=== PATIENT | male | born 1945 | race Caucasian/White ===

== ENCOUNTER 2016-08-02 09:25 | Observation (INO) | payer MEDICARE ==
[2016-08-02] VITALS (9 sets, daily range): BP systolic 133–172; BP diastolic 71–88; PULSE 60–70; RESP 10–17; O2SAT 94–97
[~2016-08-02] VITALS: Ht 190.5 cm; Wt 103.8 kg
[2016-08-02 09:52] LABS: BASOPHILS % (AUTO) 0.4 % (0-3); EOSINOPHILS % (AUTO) 0.7 % (0-5); MONOCYTES % (AUTO) 9.7 % (4-12); Mean Corpuscular Volume 92.3 fL (81-100); Platelet Count 215 bil/L (150-400)
--- NOTE | 2016-08-02 10:03 | ED.REPORT ---
HPI-Chest Pain 40 and Over Date of Service Aug 02, 2016 ED Provider: Getachew Miranda MD The patient is a 71 year old male with history of high cholesterol, who was brought to the emergency department by EMS for "sharp" chest pain that woke him from sleep at 0300 last night. The patient had 4 episodes of chest discomfort throughout the morning. His pain radiated into his left shoulder and he also noticed left hand numbness and shortness of breath. He called his regular doctor who recommended calling EMS. By the time medics arrived his pain was resolved and has not returned since. He denies fever, chills, cough, nausea, vomiting or diaphoresis. He denies history of coronary artery disease, COPD or asthma. He had a stress test a few years ago but does not remember the findings. Nursing Notes Stated Complaint: CHEST PAIN Chief Complaint: Chest Pain Nursing Notes Reviewed: Yes Allergies: Coded Allergies: No Known Allergies (Verified Allergy, Unknown, 08/02/16) General Time Seen by MD: 09:27 Chief Complaint Chest pain Hx Obtained From: Patient, EMS Arrived By: Ambulance Sudden in Onset?: Yes Onset Occurred: 5 - 8 hours ago Symptom Duration: Intermittent Location: : Chest left Quality: Painful, Sharp Radiation: : Shoulder left Severity: Current: No pain currently Severity: Maximum: Severe Recent Healthcare: No recent doctor visit, No recent hospitalization Similar Sx Previous: No Past Medical History Past Medical History Glaucoma High cholesterol Past Surgical History Prostate repair with modified TURP Cholecystectomy Family History Noncontributory Smoking History Unknown if Ever Smoker Social History Lives on [address]. He exercises at least 3 times per week. Ambulatory Status Independent Review of Systems Constitutional: Denies: Chills, Fever Respiratory: Reports: Shortness of breath, Denies: Non-productive cough Cardiovascular: Reports: Chest pain GI: Denies: Nausea, Vomiting Musculoskeletal: Reports: Extremity pain (left arm), Joint pain (left shoulder) Skin: Denies Diaphoresis Neurologic: Reports: Numbness (left hand) Complete sys rev & neg: except as marked. Physical Exam Initial Vital Signs Vital Signs (First) Date Time Temp Pulse Resp B/P Pulse Ox O2 Delivery O2 Flow Rate FiO2 08/02/16 09:25 37.1 65 10 172/71 95 Room Air 08/02/16 10:24 2 Initial VS: Reviewed Head / Eyes: Atraumatic, Normocephalic, PERRL ENT: Mucous membranes moist, Conjunctiva normal, No scleral icterus Neck: Supple, Non-tender, Full range of motion Extremities: Vascular intact, Neuro intact, No swelling, No tenderness Skin: Warm, Dry, No cyanosis Neurologic: Alert, Oriented, Nonfocal Psychiatric: Mood/affect normal, Behavior normal, Normal thought content General/Constitutional: Awake, Alert, No acute distress, Well appearing Respiratory / Chest: Atraumatic, Breath sounds NL, Breath sounds = bilat, No respiratory distress, No rales, No rhonchi, No wheezing, No stridor, No chest tenderness Cardiovascular: Heart rate NL, Regular rhythm, Heart sounds NL, No gallop, No murmurs, No rubs, Peripheral circulation NL, Pulses = bilaterally, No gross BP differential Abdomen: Atraumatic, Soft, Non-tender, McBurney's non-tender, No guarding, No rebound, BS normoactive, No distention, No hernia, No palpable mass Lower Extremity / Pelvis / MS: Neurologic intact, Vascular intact, No edema No calf swelling or tenderness Interpretation & Diagnostics Lab Results Interpretation Result Diagram: 08/02/16 0940 08/02/16 0940 Test 08/02/16 09:40 08/02/16 09:56 White Blood Count 6.7th/mm3 (3.8-10.1) Red Blood Count 4.93mil/mm3 (4.40-5.80) Hemoglobin 15.3g/dL (13.8-17.2) Hematocrit 45.5% (41.0-50.0) Mean Corpuscular Volume 92.3fL (81-100) Mean Corpuscular Hemoglobin 31.0pg (27.0-35.0) Mean Corpuscular Hemoglobin Concent 33.6% (32.0-37.0) Red Cell Distribution Width 13.6% (12.3-15.4) Platelet Count 215bil/L (150-400) Neutrophils (%) (Auto) 66.0% (40-74) Lymphocytes (%) (Auto) 23.1% (14-46) Monocytes (%) (Auto) 9.7% (4-12) Eosinophils (%) (Auto) 0.7% (0-5) Basophils (%) (Auto) 0.4% (0-3) Sodium Level 137mEq/L (134-144) Potassium Level 4.3mEq/L (3.5-5.2) Chloride Level 100mEq/L (97-108) Carbon Dioxide Level 22mmol/L (18-29) Blood Urea Nitrogen 13mg/dL (8-27) Creatinine 0.86mg/dL (0.76-1.27) Estimat Glomerular Filtration Rate 93mL/min (>59) Glucose Level 107mg/dL (60-99) Calcium Level 8.9mg/dL (8.5-10.1) Total Bilirubin 1.1mg/dL (0.0-1.2) Aspartate Amino Transf (AST/SGOT) 32U/L (0-50) Alanine Aminotransferase (ALT/SGPT) 25U/L (0-44) Alkaline Phosphatase 69U/L (25-160) Troponin T 0.010ug/L (0.0-0.011) Total Protein 7.0g/dL (6.4-8.4) Albumin 4.2g/dL (3.4-5.0) Urine Color Straw (YELLOW) Urine Appearance Hazy (CLEAR,HAZY) Urine pH 6.5 (5.0-8.0) Urine Specific [place] 1.008 (1.003-1.035) Urine Protein Negativemg/dL (NEG,TRACE) Urine Glucose (UA) Negativemg/dL (NEGATIVE) Urine Ketones Negativemg/dL (NEGATIVE) Urine Occult Blood Moderate (NEGATIVE) Urine Nitrite Negative (NEGATIVE) Urine Bilirubin Negative (NEGATIVE) Urine Urobilinogen Normalmg/dL (NORMAL) Urine Leukocyte Esterase Small (NEGATIVE) Urine RBC 0-2/hpf (0-2) Urine WBC 11-50/hpf (0-5) Urine Epithelial Cells Occasional/hpf (NONE-MOD) Urine Crystals None seen (NONE SEEN) Urine Bacteria Few/hpf (NONE-FEW) Urine Hyaline Casts None/lpf (NONE) Urine Granular Casts None seen (NONE SEEN) Urine Waxy Casts None seen (NONE SEEN) Urine Red Blood Cell Casts None seen (NONE SEEN) Urine White Blood Cell Casts None seen (NONE SEEN) Urine Mucus None seen (None Seen) Urine Trichomonas None seen (NONE SEEN) Urine Yeast None (NONE SEEN) Urinalysis Comment None Urine Culture Reflexed Indicated ECG Interpretation ECG Interpretation: Sinus rhythm with a rate of 68 bpm Normal axis Normal intervals No ST segment changes No T wave abnormalities No prior for comparison Time: 10:14 Interpreted by: ED physician X-Ray Chest Interpretation Chest Xray Interpretation: IMPRESSION: No acute cardiopulmonary disease. Dictated by: Zeus Smart M.D. on 08/02/2016 at 11:36 View: Portable, 1 view Interpretation / Wet Read by: Interpret - Radiologist Re-Eval/Medical Decision Med Decision/Clinical Course In summary, the patient is a 71-year-old male with no known past cardiac history who presents to the emergency department with acute onset of left sided chest pain that radiated to his shoulder and jaw and arm. He has received aspirin prior to arrival and here in the emergency department he is chest pain- free without any ongoing symptoms. CXR: Obtained, reviewed and interpreted by myself shows no evidence of acute infiltrates, effusions or pneumothorax. Cardiac and mediastinal silhouette normal. No bony or soft tissue abnormalities. EKG was obtained and interpreted by myself as documented above. LABS: CBC unremarkable, CMP unremarkable, troponin negative, UA unconvincing for UTI. Overall presentation not entirely convincing for acute coronary syndrome. Given duration of symptoms and time of onset I would expect to see positive troponin at this point. That being said, the patient [place] [address] and does not have access to cardiac risk stratification. In discussing this with the patient he would like to be admitted. I did make several attempts to contact his primary care physician to discuss possible outpatient management however I was not successful given that it is Wednesday. I considered other causes of the patient's chest pain beyond cardiac etiologies including pulmonary embolism however he is without tachycardia, tachypnea or hypoxia and does not have any major PE risk factors. I do not feel that workup for pulmonary embolism is indicated at this time. There is no evidence of pneumonia or pneumothorax. The patient remained stable, comfortable and in no apparent distress. Patient was discussed with the admitting hospitalist and transferred to the [facility] stable condition. Further management. Source of Hx: Old records, EMS Time of Eval: 10:32 Re-Evaluation/Progress Note: Discussed plan for workup and the possibility of admission. Time of Eval: 12:00 Re-Evaluation/Progress Note: Rechecked the patient. Discussed workup resuls. Recommended admission for stress test. He is okay with this plan. All questions were addressed. Consultation #1: Referral / Consult Name: Shekhar Downing MD Consulted With: Primary care physician Requested Call at: 10:56 Note: I was unable to get ahold of the patient's PCP. Consultation #2: Referral / Consult Name: Gideon Vasquez MD Consulted With: Hospitalist Requested Call at: 12:01 Call Returned at: 12:14 Equal Opportunity Representative: Will see patient, Agrees with eval, Agrees with plan, Accepts admit Counseled Regarding: Diagnosis, Lab results, Need for admission Discharge & Departure Primary Impression: Chest pain Chest pain type: unspecified Qualified Code: R07.9 - Chest pain, unspecified Additional Impression: HLD (hyperlipidemia) Hyperlipidemia type: unspecified Qualified Code: E78.5 - Hyperlipidemia, unspecified Disposition: ADMITTED TO HOSPITAL Discharge Condition All VS Reviewed: Yes Condition: Stable Referrals: Shekhar Downing MD (PCP) Scribe Attestation Portions of this note were transcribed by Ary Strange. I, Dr. Miranda personally performed the history, physical exam and medical decision-making; I reviewed and confirmed the accuracy of the information in the transcribed note. Signed by: Kylie Tesfaye, 08/01/2015 and 1215. copies to: Shekhar Downing MD, Beck O MD Aug 02, 2016 10:03 Ary Strange Aug 02, 2016 10:22
[2016-08-02 10:12] LABS: TROPONIN T 0.01 ug/L (0.0-0.011)
[2016-08-02 10:30] LABS: APPEARANCE,URINE HAZY (CLEAR,HAZY); COLOR,URINE STRAW (YELLOW); OCCULT BLOOD,URINE MODERATE (NEGATIVE); PH,URINE 6.5 (5.0-8.0); UROBILINOGEN,URINE NORMAL (NORMAL)
--- NOTE | 2016-08-02 11:39 | DRSVH ---
PROCEDURE: X-RAY CHEST, TWO VIEWS ([id number]) INDICATIONS: 71 year-old male with chest pain and left arm pain. TECHNIQUE: 2 views of the chest were acquired. COMPARISON: [facility], , CHEST 1 VIEW, 09/13/2015, 8:49. [facility], , CHEST 1 VIEW, 01/06/2015, 12:29. [facility], , CHEST 2 VIEW, 03/08/2013, 11:12. FINDINGS: Surgical changes and devices: Patient is status post cholecystectomy. Lungs and pleura: No pleural effusions or pneumothorax. Lungs are clear. Mediastinum: Mediastinal contours are normal. Heart size is normal. There is aortic atherosclerosi s. Bones and chest wall: No suspicious bony abnormalities. Soft tissues appear unremarkable. IMPRESSION: No acute cardiopulmonary disease. Dictated by: Zeus Smart M.D. on 08/02/2016 at 11:36 Approved by: Zeus Smart M.D. on 08/02/2016 at 11:37
[2016-08-02] MEDS ORDERED: Polyethylene Glycol (PEG) 17 Gm Powder PO PRN (12:20)
[2016-08-02] MEDS ORDERED: Alum-Mag Hydrox-Simeth 30 mL Suspension PO PRN (12:20)
[2016-08-02] MEDS ORDERED: Ondansetron 2 mg/mL 2 mL Inj IVPUSH PRN (12:20)
--- NOTE | 2016-08-02 12:59 | PCM.HPMED ---
Subjective Date of Service Aug 02, 2016 Primary Provider: Admitting Physician: Gideon Vasquez MD Primary Care Physician: Shekhar Downing MD Attending Physician: Gideon Vasquez MD Chief Complaint: chest pain History of Present Illness: 71 year old male with h/o hyperlipidemia presented to ED with c/o chest pain that was started earlier this morning. He reposts multiple episodes of left sided and substernal chest pain each lasted for about few minutes. Pain radiated to left shoulder, 8/10 in severity, no specific aggravating or relieving factor, associated with mild shortness of breath and left hand numbness. He called his regular doctor who recommended calling EMS. By the time medics arrived his pain was resolved and has not returned since. He denies any fever, chills, cough, nausea, vomiting or diaphoresis. He also denies history of coronary artery disease, COPD or asthma. He had a stress test a few years ago but does not remember the findings. On arrival to ED, he was initially mildly hypertensive. Labs were unremarkable. Allergies Coded Allergies: No Known Allergies (Verified Allergy, Unknown, 08/02/16) PMH - Hyperlipidemia - Glaucoma Surgical History - Prostate surgery, TURP - Cholecystectomy Social History Hx Alcohol Use: Yes ("not often now since my medications") Hx Substance Use: No Smoking Status: Unknown if Ever Smoker Living Arrangement: with Family Exam Vital Signs Vital Sign - Last Date Time Temp Pulse Resp B/P Pulse Ox O2 Delivery O2 Flow Rate FiO2 08/02/16 12:10 69 11 150/88 94 Room Air 08/02/16 10:24 2 08/02/16 09:25 37.1 Exam General: AAO x 3, not in distress HEENT: anicteric sclera CVS: Regular rate and rhythm, S1,S2 normal, No murmur Resp: Normal respiratory effort, Breath sounds bilaterally equal, No rhonchi, No rales Abdomen: soft, non distended, BS +nt, No organomegaly Extremities: No cyanosis, No pedal edema Neuro: AAO x3, No focal neurological defects. Psy: Normal affect Lab and Diagnostics Result Diagram: 08/02/1640 08/02/16 0940 X-Rays, CTs and MRIs CXR: No acute cardiopulmonary disease. Assessment & Plan 71 year old male with h/o hyperlipidemia presented to ED with c/o chest pain. Chest pain - rule out ACS - Trop x 1: negative - Labs were unremarkable - Cardiology consulted from ED. To be admitted for [place] stress test - Aspirin, Statins, - SL NTG prn for pain Analgesics / Antiemetics prn as per protocol GI ppx: Pantoprazole DVT ppx: Heparin Code: Full code Status: To be admitted as observation status as likely discharge from the hospital within two days of the admission Pain Evaluation: Adequate Pain Control GI Prophylaxis: Proton Pump Inhibitor VTE Prophylaxis: Sub-Q Heparin (Unfractionated) Resuscitation Status: CPR: Attempt Resuscitation Gideon Vasquez MD Aug 02, 2016 12:46
--- NOTE | 2016-08-02 13:04 | NUR ---
Admit Patient arrived to room 246-1 via stretcher from ED around 1250. Pt A/Ox3, denies pain, denies nausea. IV SL.
[2016-08-02] MEDS ORDERED: DORZ10DR20 BOTH_EYES (15:30)
[2016-08-02] MEDS ORDERED: LATA2.5D6 BOTH_EYES (15:30)
[2016-08-02] MEDS ORDERED: BRIM5DRO9 BOTH_EYES (15:30)
[2016-08-02] MEDS ORDERED: ASPI-973 PO (15:30)
[2016-08-02] MEDS: Heparin 5,000 Unit/mL Inj SUBQ SCH (16:30)
[2016-08-02] MEDS: Timolol-Dorzolamide 10 mL Ophthalmic Solution BOTH_EYES SCH (20:35)
[2016-08-02] MEDS: Brimonidine 0.2% 5 mL Ophthalmic Solution BOTH_EYES SCH (20:35)
[2016-08-03 00:02] VITALS: BP 139/82; PULSE 65; RESP 17; O2SAT 96
[2016-08-03] MEDS: Heparin 5,000 Unit/mL Inj SUBQ SCH ×2 (00:30→08:30)
[2016-08-03 06:09] VITALS: BP 158/94; PULSE 80; RESP 17; O2SAT 94
[2016-08-03 06:25] LABS: BASOPHILS % (AUTO) 0.4 % (0-3); EOSINOPHILS % (AUTO) 2.5 % (0-5); MONOCYTES % (AUTO) 10.9 % (4-12); Mean Corpuscular Hemoglobin 30.8 pg (27.0-35.0); Mean Corpuscular Volume 91.5 fL (81-100); NEUTROPHILS % (AUTO) 57.1 % (40-74); Platelet Count 239 bil/L (150-400)
[2016-08-03] MEDS ORDERED: Pantoprazole 20 mg ER24 Tablet PO SCH (07:30)
[2016-08-03 07:49] VITALS: BP 150/88; PULSE 70; O2SAT 95
[2016-08-03] MEDS: Brimonidine 0.2% 5 mL Ophthalmic Solution BOTH_EYES SCH (07:54)
[2016-08-03] MEDS: Timolol-Dorzolamide 10 mL Ophthalmic Solution BOTH_EYES SCH (07:55)
[2016-08-03 08:16] VITALS: PULSE 84
--- NOTE | 2016-08-03 12:08 | NUR ---
Case Management: ACOSTA given and explained to pt at 11:55. Soraida VILLAVICENCIO, RN
[2016-08-03 12:32] VITALS: BP 167/92; PULSE 84; RESP 16; O2SAT 97
--- NOTE | 2016-08-03 12:42 | PCM.DIMED ---
Discharge Instructions Date of Service Aug 03, 2016 Dates of Hospitalization Aug 02, 2016 at 12:20 Discharge Diagnosis Discharge Diagnosis Chest pain noncardiac Test Results Normal Myoview = normal heart test Diet Heart Healthy Activity No restrictions Call your provider Shortness of breath, Chest pain Patient Instructions Come back to emergency room if you continue having chest pain particularly if it is related to exertion. Follow-up Provider: Shekhar Downing MD Follow-up with PCP in: Other (call) Eduardo Cardenas MD Aug 03, 2016 12:42
--- NOTE | 2016-08-03 12:45 | DRSVH ---
PROCEDURE: 1 DAY PHARMACOLOGICAL STRESS TEST Rest and pharmacological stress myocardial perfusion SPECT with gated imaging and ejection fraction RADIOPHARMACEUTICAL: 8.7 mCi Tc-99m tetrafosmin IV at rest and 25.7 mCi Tc-99m tetrafosmin IV at peak effect of pharmacological stress. A nyr-sti-tungoonb was performed. INDICATIONS: 71-year-old man with chest pain. The patient has hypertension and hyperlipidemia. TECHNIQUE: Radiopharmaceutical was injected at peak stress test, and also at rest. SPECT images wer e obtained. SPECT myocardial perfusion images were displayed in short axis, horizontal long axis, an d vertical long axis views. Gated images were reviewed using [employer] software. COMPARISON: None. CARDIAC STRESS: A pharmacologic stress test was performed under the supervision of an attending staff, using an infus ion of [employer]. Hemodynamic data: There is normal blood pressure and heart rate response to pharmacologic stress. Symptoms: The patient denied anginal chest pain. Aminophylline: 100 mg IV EKG: No diagnostic changes of ischemia; no ectopy. FINDINGS: Raw data: There is good myocardial uptake of radiotracer. No significant motion artifacts. Left ventricle function: Gated images demonstrate normal left ventricular wall thickening. No segme ntal wall motion abnormalities. No transient ischemic dilation. Left ventricle resting end diastoli c volume is normal. Left ventricle stress ejection fraction is 62%; normal range is above 45%. Myocardial perfusion: There is normal distribution of activity in the right and left ventricular donya cardium. No fixed or reversible perfusion defects. IMPRESSION: 1. Normal myocardial perfusion images. 2. Normal left ventricular volume and systolic function. 3. No chest pain or diagnostic EKG changes for ischemia. PQRS ATTESTATIONS: Measure 322 - Is this imaging test primarily performed on a low-risk surgery patient for preoperative evaluation within 30 days preceding their low-risk non-cardiac surgery? Low-risk surgery is defined as cardiac or myocardial infarction less than 1%, including (but not limited to) endoscopic pr ocedures, superficial procedures, cataract surgery, and excisional breast surgery: Answer: No Measure 323 - Is this imaging test performed primarily for the monitoring of an asymptomatic patient who had percutaneous coronary intervention on the visit date or within 2 years of the visit date? An swer: No Measure 324 - Is this imaging test performed primarily for the initial detection and risk assessment on an asymptomatic, low coronary heart disease patient? Low CHD risk definition = clinicians should consider the maximum number of available patient factors used to estimate risk based on [place] (A TP III criteria), typically age, gender, diabetes, smoking status, and use of blood pressure medicati on, and integrate age appropriate estimates for missing elements, such as LDL or standard blood press ure. Answer: No Dictated by: Jim Lind M.D. on 08/03/2016 at 12:27 Approved by: Jim Lind M.D. on 08/03/2016 at 12:44
[2016-08-03] MEDS ORDERED: LISI10TA PO (12:51)
[2016-08-03] MEDS ORDERED: NITR0.4T SL (12:51)
[2016-08-03] MEDS ORDERED: METO25TA6 PO (12:51)
[2016-08-03] MEDS ORDERED: ATOR20TA PO (12:51)
--- NOTE | 2016-08-03 12:52 | PCM.DC.MED ---
Discharge Summary Date of Service Aug 03, 2016 Dates of Hospitalization Date of Hospital Admission Aug 02, 2016 at 12:20 Date of Discharge: Aug 03, 2016 Providers: Admitting Physician: Gideon Vasquez MD Primary Care Physician: Simona Downing MD Attending Physician: Gideon Vasquez MD Diagnosis at Time of Discharge Diagnosis at Time of Discharge Chest pain noncardiac Consultations None Procedures XRay, CTs & MRIs CXR: No acute cardiopulmonary disease. ECG 12 Lead EKG sinus rhythm rate of 68, QTC [address] segment changes slightly normal 08/02 and currently reviewed by Theresa 08/03 Other Diagnostics Patient Name: SIMONA KENYON MR#: [id number] Location: [facility] [place] Ordering Phys: Gideon Vasquez MD Date of Service: 08/03/16 1221 PROCEDURE: 1 DAY PHARMACOLOGICAL STRESS TEST Rest and pharmacological stress myocardial perfusion SPECT with gated imaging and ejection fraction RADIOPHARMACEUTICAL: 8.7 mCi Tc-99m tetrafosmin IV at rest and 25.7 mCi Tc-99m tetrafosmin IV at peak effect of pharmacological stress. A [id number] was performed. INDICATIONS: 71-year-old man with chest pain. The patient has hypertension and hyperlipidemia. TECHNIQUE: Radiopharmaceutical was injected at peak stress test, and also at rest. SPECT images were obtained. SPECT myocardial perfusion images were displayed in short axis, horizontal long axis, and vertical long axis views. Gated images were reviewed using [employer] software. COMPARISON: None. CARDIAC STRESS: A pharmacologic stress test was performed under the supervision of an attending staff, using an infusion of Lexiscan. Hemodynamic data: There is normal blood pressure and heart rate response to pharmacologic stress. Symptoms: The patient denied anginal chest pain. Aminophylline: 100 mg IV EKG: No diagnostic changes of ischemia; no ectopy. FINDINGS: Raw data: There is good myocardial uptake of radiotracer. No significant motion artifacts. Left ventricle function: Gated images demonstrate normal left ventricular wall thickening. No segmental wall motion abnormalities. No transient ischemic dilation. Left ventricle resting end diastolic volume is normal. Left ventricle stress ejection fraction is 62%; normal range is above 45%. Myocardial perfusion: There is normal distribution of activity in the right and left ventricular myocardium. No fixed or reversible perfusion defects. IMPRESSION: 1. Normal myocardial perfusion images. 2. Normal left ventricular volume and systolic function. 3. No chest pain or diagnostic EKG changes for ischemia. Brief History chest pain that was started earlier this morning. Hospital Course 71 year old male with h/o hyperlipidemia presented to ED with c/o chest pain. Likely this is noncardiac patient reports going to the gym without having these problems perhaps he has GERD. He is physically fit. Discharged him with nitroglycerin, he prefers not to start on metoprolol or lisinopril at this point in time which I was going to give him prescriptions for. He does not tolerate statins. I defer to his primary care provider Dr. Downing on [place] Chest pain- rule out by enzymes, EKG normal, Myoview low risk discharging 08/03 - rule out ACS - Trop x 1: negative - Labs were unremarkable - SL NTG prn for pain HTN- SBP in the 160s heart rate in the 60s to 70s would recommend starting patient on lisinopril and/or metoprolol Hyperlipidemia- the history was not checked slowly was here. Patient reports statin allergy. Analgesics / Antiemetics prn as per protocol GI ppx: Pantoprazole DVT ppx: Heparin Code: Full code Status: To be admitted as observation status as likely discharge from the hospital within two days of the admission Exam Vital Signs (Last) Date Time Temp Pulse Resp B/P Pulse Ox O2 Delivery O2 Flow Rate FiO2 08/03/16 12:32 36.8 84 16 167/92 97 08/03/16 06:09 Room Air 08/02/16 12:55 2 Exam Gen.- A+ O 3 no apparent distress. Eyes- open conjunctiva clear, pupils equal nonicteric ENT- ears normal, nose normal Neck- supple/trach midline CVS- RRR Lungs-respirations regular and nonlabored GI-abdomen flat Musc- moving 4 no obvious deformity Neuro- cranial nerves II through XII intact to gross examination, nonfocal Skin- warm and dry, no rashes/lesions/wounds noted Psych- pleasant and appropriate, Test 08/02/16 09:40 08/02/16 09:56 08/02/16 15:55 08/03/16 06:00 Total Bilirubin 1.1mg/dL (0.0-1.2) Aspartate Amino Transf (AST/SGOT) 32U/L (0-50) Alanine Aminotransferase (ALT/SGPT) 25U/L (0-44) Alkaline Phosphatase 69U/L (25-160) Total Protein 7.0g/dL (6.4-8.4) Albumin 4.2g/dL (3.4-5.0) Urine Color Straw (YELLOW) Urine Appearance Hazy (CLEAR,HAZY) Urine pH 6.5 (5.0-8.0) Urine Specific [place] 1.008 (1.003-1.035) Urine Protein Negativemg/dL (NEG,TRACE) Urine Glucose (UA) Negativemg/dL (NEGATIVE) Urine Ketones Negativemg/dL (NEGATIVE) Urine Occult Blood Moderate (NEGATIVE) Urine Nitrite Negative (NEGATIVE) Urine Bilirubin Negative (NEGATIVE) Urine Urobilinogen Normalmg/dL (NORMAL) Urine Leukocyte Esterase Small (NEGATIVE) Urine RBC 0-2/hpf (0-2) Urine WBC 11-50/hpf (0-5) Urine Epithelial Cells Occasional/hpf (NONE-MOD) Urine Crystals None seen (NONE SEEN) Urine Bacteria Few/hpf (NONE-FEW) Urine Hyaline Casts None/lpf (NONE) Urine Granular Casts None seen (NONE SEEN) Urine Waxy Casts None seen (NONE SEEN) Urine Red Blood Cell Casts None seen (NONE SEEN) Urine White Blood Cell Casts None seen (NONE SEEN) Urine Mucus None seen (None Seen) Urine Trichomonas None seen (NONE SEEN) Urine Yeast None (NONE SEEN) Urinalysis Comment None Urine Culture Reflexed Indicated Troponin T < 0.010ug/L (0.0-0.011) White Blood Count 7.5th/mm3 (3.8-10.1) Red Blood Count 5.20mil/mm3 (4.40-5.80) Hemoglobin 16.0g/dL (13.8-17.2) Hematocrit 47.6% (41.0-50.0) Mean Corpuscular Volume 91.5fL (81-100) Mean Corpuscular Hemoglobin 30.8pg (27.0-35.0) Mean Corpuscular Hemoglobin Concent 33.6% (32.0-37.0) Red Cell Distribution Width 13.4% (12.3-15.4) Platelet Count 239bil/L (150-400) Neutrophils (%) (Auto) 57.1% (40-74) Lymphocytes (%) (Auto) 29.0% (14-46) Monocytes (%) (Auto) 10.9% (4-12) Eosinophils (%) (Auto) 2.5% (0-5) Basophils (%) (Auto) 0.4% (0-3) Sodium Level 140mEq/L (134-144) Potassium Level 4.3mEq/L (3.5-5.2) Chloride Level 98mEq/L (97-108) Carbon Dioxide Level 26mmol/L (18-29) Blood Urea Nitrogen 18mg/dL (8-27) Creatinine 1.01mg/dL (0.76-1.27) Estimat Glomerular Filtration Rate 77mL/min (>59) Glucose Level 106mg/dL (60-99) Calcium Level 9.3mg/dL (8.5-10.1) Discharge Medications Discharge Medications Aspirin (Aspirin) 81 Mg Tablet 81 MG PO DAILY (Reported) Brimonidine Tartrate (Brimonidine 0.2% Oph Soln) 5 Ml Drops 1 DROP BOTH_EYES TID (Reported) Dorzolamide HCl/Timolol Maleat (Dorzolamide-Timolol Eye Drops) 10 Ml Drops 1 DROP BOTH_EYES BID (Reported) Latanoprost (Latanoprost) 2.5 Ml Drops 1 DROP BOTH_EYES HS (Reported) As needed Nitroglycerin SL (Nitrostat) 0.4 Mg Tab.subl 0.4 MG SL Q5MIN PRN PRN For Chest Pain Prescribed by: CARLOS ALBERTO JACOBS MD Followup Plan Disposition: Patient going home to independent living Discharge Diet: Heart Healthy Discharge Activity: No restrictions (call for follow-up) Patient Instructions Come back to emergency room if you continue having chest pain particularly if it is related to exertion. Follow-up Provider: Simona Downing MD Follow-up with PCP in: Other (call) Time spent Greater than 30 minutes copies to: Simona Downing MD, Andris E MD Aug 03, 2016 12:52
--- NOTE | 2016-08-03 13:27 | PCM.DIMED ---
Discharge Instructions Date of Service Aug 03, 2016 Dates of Hospitalization Aug 02, 2016 at 12:20 Discharge Diagnosis Discharge Diagnosis Chest pain noncardiac Diet Heart Healthy Activity No restrictions Call your provider Shortness of breath, Chest pain Patient Instructions Come back to emergency room if you continue having chest pain particularly if it is related to exertion. Follow-up Provider: Shekhar Downing MD Follow-up with PCP in: Other (call) Eduardo Cardenas MD Aug 03, 2016 13:27
--- NOTE | 2016-08-03 14:13 | NUR ---
Discharge Pt discharged at 1413. He was given discharge instructions and instructions for follow up care. He confirmed understanding of these instructions. He was one hard copy prescription to take with him. He left in possession of all of his belongings. IV was d/c'd. Pt was walked to the exit by unit staff. He planned to walk to the bus stop and take the bus to the [facility] terminal (home to [place]).
== END 2016-08-03 14:12 | disposition home or self-care (01) ==
LOC: SED 09:25 → MOC 12:20
PROVIDERS: ADMIT Internal Medicine; ATTEND Internal Medicine
DX: R07.89 Other chest pain (principal); E78.5 Hyperlipidemia, unspecified; H40.9 Unspecified glaucoma; Z79.82 Long term (current) use of aspirin; Z79.899 Other long term (current) drug therapy
CPT/HCPCS: 36415; 71020; 78452; 80048; 80053; 80061; 81000; 83036; 84484; 85025; 87086; 87088; 93005; 93017; 99285; A9502; G0378; J0280; J2785